=== PATIENT | male | born 1995 | race African-American/Black ===

== ENCOUNTER 2016-08-25 18:44 | Emergency (ER) | payer BC ==
[2016-08-25 18:46] VITALS: BP 152/97; PULSE 89; RESP 12; TEMP 97.4; O2SAT 100
[2016-08-25] MEDS ORDERED: AUGM875T PO (19:47)
--- NOTE | 2016-08-25 19:51 | PD ---
HPI Chief Complaint: Bite or Sting Time Seen by Provider: 19:48 Travel History International Travel<30 days: No Contact w/Intl Traveler<30days: No Traveled to known affect area: No History of Present Illness HPI 20-year-old black male presents to emergency department for evaluation of a dog bite to his right lower leg. 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 He states that the 2 dogs were going at it when he tried to separate the dogs. He states that he was bitten in the right leg one time and shaken I the nausea was babysitting. It was a pit bull husky mix. He states that the dog is up-to-date with shots. He has had a tetanus shot last 5 years. Pain is mild. No other injuries. PFSH Past Medical History Medical History: Denies Significant Hx Tetanus Vaccination: < 5 Years Influenza Vaccination: No Past Surgical History Surgical History: No Previous Surgery Social History Alcohol Use: No Tobacco Use: No Substance Use: No Allergies-Medications (Allergen,Severity, Reaction): Coded Allergies: No Known Allergies (Unverified , 08/25/16) Reported Meds & Prescriptions Reported Meds & Active Scripts Active Augmentin (Amoxicillin-Clavulanate) 875-125 mg Tab 875 Mg PO BID not for use in CrCl <30 ml/min. Review of Systems Except as stated in HPI: all other systems reviewed are Neg Physical Exam Narrative GENERAL: This is a well-nourished, well-developed patient, in no apparent distress. SKIN: Patient has 3 superficial puncture wounds to the right lower leg just below the knee. These are superficial. There is no tendon, joint, nerve injury. He is able extend and flex his leg freely., ecchymoses or lesions. Warm and dry. HEAD: Atraumatic. Normocephalic. EYES: PERRL, EOMI, no discharge or injection. No scleral icterus. EARS: Clear NOSE: Nasal turbinates appear normal. THROAT: Mucosa pink and moist. Airway patent. NECK: Trachea midline. supple, moves head freely. LUNGS: Clear to auscultation. CV: Regular in rhythm. ABDOMEN: Soft nontender. EXT: No clubbing cyanosis or edema. Data Data Last Documented VS Vital Signs Date Time Temp Pulse Resp B/P Pulse Ox O2 Delivery O2 Flow Rate FiO2 08/25/16 18:46 97.4 89 12 152/97 100 Room Air MDM Medical Decision Making Medical Screen Exam Complete: Yes Emergency Medical Condition: Yes Medical Record Reviewed: Yes Differential Diagnosis MDM: High Differential diagnoses: Fracture, sprain, strain, dislocation, contusion, neurovascular injury, dog bite Narrative Course Patient appears to have superficial puncture wounds to the right lower leg. These are cleaned and dressed by the nursing staff. Animal bite form filed. Patient is given prescription for Augmentin. Diagnosis Primary Impression: Dog bite of right lower leg Qualified Code: S81.851A - Dog bite of right lower leg, initial encounter Patient Instructions: General Instructions Additional Instructions: Rest. Elevation. Ice. Daily wound care with soap, water, Neosporin. Tylenol and Advil for pain. Augmentin. He may fill the prescription tomorrow if you develop any redness, drainage or increasing pain. It should be rechecked by primary care doctor in the next 48-72 hours. Return to the ER for any problems. Med/Other Pt SpecificInfo: Prescription(s) given, Wound Care Scripts Amoxicillin-Clavulanate (Augmentin)875-125 mg [id number] Mg PO BID #14 TAB not for use in CrCl <30 ml/min. Prov:Jose Balderas MD 08/25/16 Disposition: 01 DISCHARGE HOME Condition: Stable Hugh Wilkerson Aug 25, 2016 19:51
== END 2016-08-25 20:48 | disposition home or self-care (01) ==
LOC: NEPB 18:44
DX: S80.871A Other superficial bite, right lower leg, initial encounter (principal); W54.0XXA Bitten by dog, initial encounter; Y93.F9 Activity, other caregiving
CPT/HCPCS: 99283